=== PATIENT | female | born 2000 | race African-American/Black ===

== ENCOUNTER 2018-11-21 07:19 | Emergency (ER) | payer BC ==
[2018-11-21 07:43] VITALS: BP 131/79
--- NOTE | 2018-11-21 08:08 | UC ---
Headache HPI - HPI Summary HPI Summary: PATIENT REPORTS A HISTORY OF MIGRAINE HEADACHES SINCE 5 YEARS OLD. STATES SHE HAS NEVER BEEN EVALUATED BY NEUROLOGY BUT GIVEN HER FREQUENT SYMPTOMS SHE SCHEDULED AN APPOINTMENT WITH A NEUROLOGIST BACK HOME IN [place]. APPOINTMENT IS ON 01/26/19. SHE IS HERE IN [place] FOR A COUPLE OF MONTHS ON A SUMMER WORK ASSIGNMENT AND REPORTS INTERMITTENT [place] FOR THE PAST 12 DAYS WITH PHOTOPHOBIA AND NAUSEA. IS NOT SLEEPING WELL DUE TO TEMPORARY ACCOMMODATIONS. - History Of Current Complaint Chief Complaint: UCHeadache Stated Complaint: SEVERE HEADACHE Time Seen by Provider: 11/21/18 08:00 Hx Obtained From: Patient Hx Last Menstrual Period: 600 Onset/Duration: Gradual Onset, Lasting Days, Still Present Onset Of Symptoms: Gradual Currently Pain Is: Mild Pain Intensity: 2 Pain Scale Used: 0-10 Numeric Timing: Constant Character: Throbbing Location of Headache: Diffuse Aggravating Factor(s): Nothing Allevating Factor(s): Nothing Associated Signs And Symptoms: Positive: Nausea. Negative: Dizziness, Vomiting , Fever, Neck Pain, Neck Stiffness, Decreased LOC - Allergies/Home Medications Allergies/Adverse Reactions: Allergies Allergy/AdvReac Type Severity Reaction Status Date / Time No Known Allergies Allergy Verified 11/21/18 07:43 PMH/Surg Hx/FS Hx/Imm Hx Neurological History: Migraine - Surgical History Surgical History: None - Family History Known Family History: Positive: Non-Contributory - Social History Alcohol Use: Rare Substance Use Type: None Smoking Status (MU): Never Smoked Tobacco Review of Systems All Other Systems Reviewed And Are Negative: Yes Constitutional: Positive: Negative Eyes: Positive: Photophobia Respiratory: Positive: Negative Cardiovascular: Positive: Negative Gastrointestinal: Positive: Nausea Neurological: Positive: Headache Physical Exam Triage Information Reviewed: Yes Appearance: Well-Appearing, No Pain Distress, Well-Nourished Vital Signs: Initial Vital Signs Temp 98.6 F 11/21/18 07:39 Pulse 78 11/21/18 07:39 Resp 18 11/21/18 07:39 BP 131/79 11/21/18 07:39 Pulse Ox 100 11/21/18 07:39 Vital Signs Reviewed: Yes Eyes: Positive: Conjunctiva Clear ENT: Positive: Hearing grossly normal Neck: Positive: Supple Respiratory: Positive: No respiratory distress, No accessory muscle use Cardiovascular: Positive: Pulses Normal Abdomen Description: Positive: Soft Musculoskeletal: Positive: No Edema Neurological: Positive: Alert, Muscle Tone Normal Psychological: Positive: Age Appropriate Behavior Skin: Negative: Rashes Diagnostics - Radiology CT HEAD W/O CONTRAST Radiology Interpretation Completed By: Radiologist Summary of Radiographic Findings: No intracranial mass or hemorrhage is noted. Headache Course/Dx - Course Course Of Treatment: PATIENT OFFERED TREATMENT WITH IV FLUIDS, ZOFRAN, TORADOL, BENADRYL. SHE STATES HER PAIN TODAY IS ONLY A 2 OUT OF 10 AND DECLINES ANY ACUTE INTERVENTION IN THE URGENT CARE. CT SCAN OF THE HEAD OBTAINED AND WAS UNREMARKABLE. SHE IS LOOKING FOR MORE ABORTIVE MEDICATIONS THAT SHE CAN TAKE. HAS NEVER TRIED IMITREX. WILL PRESCRIBE THIS FOR ABORTIVE MANAGEMENT. HAVE ADVISED SHE STAY WELL-HYDRATED AND RESTED. RECOMMENDED SHE HAVE HER EYES EVALUATED. CONTACT INFORMATION FOR NEUROLOGY HERE IN [place] PROVIDED. SHE STATES SHE DOES HAVE A NEUROLOGY APPOINTMENT ON 01/26/19 BACK HOME IN [place]. TO THE ER WITHOUT FAIL IF HER SYMPTOMS WORSEN. - Differential Dx/Diagnosis Provider Diagnosis: Headache Discharge - Sign-Out/Discharge Documenting (check all that apply): Patient Departure All imaging exams completed and their final reports reviewed: Yes - Discharge Plan Condition: Stable Disposition: HOME Prescriptions: SUMAtriptan TAB* [Imitrex TAB*] 50 mg PO SEE INSTRUCTIONS #10 tab Patient Education Materials: Migraine Headache (ED) Referrals: [facility] [Outside] - If Needed Sam Shaver MD [Medical Doctor] - 1 Week Additional Instructions: CT HEAD TODAY UNREMARKABLE. BE SURE TO STAY WELL-HYDRATED. GET ADEQUATE REST AND ENSURE YOU DON'T NEED EYEGLASSES. YOUR PERSISTENT HEADACHE MAY BE CONTRIBUTED TO BY THE NEW ALLERGENS IN THIS CLIMATE VERSUS INCREASED STRESS WITH THE JOB. KEEP YOUR NEUROLOGY APPOINTMENT BACK HOME IN [place]. CONSIDER FOLLOWING UP WITH NEUROLOGY HERE IF YOUR SYMPTOMS ARE PERSISTENT. YOU HAVE DECLINED ANY MEDICATIONS HERE IN THE URGENT CARE IN FAVOR OF CONSERVATIVE MANAGEMENT AT HOME WITH IMITREX FOR ABORTIVE MANAGEMENT. GO TO THE ED WITHOUT FAIL IF YOU DEVELOP UNEQUAL PUPILS, VISUAL DISTURBANCE, GAIT INSTABILITY, SPEECH DIFFICULTY, NAUSEA/VOMITING, WORSENING HEADACHE, DIZZINESS, CONFUSION, WEAKNESS OR ANY OTHER CONCERNING SYMPTOMS. - Billing Disposition and Condition Condition: STABLE Disposition: Home
== END 2018-11-21 08:55 | disposition home or self-care (01) ==
LOC: UCEAST 07:19
DX: R51 Headache (principal)
CPT/HCPCS: 70450; 99202; G0463